=== PATIENT | male | born 1995 | race Caucasian/White ===

== ENCOUNTER 2019-10-05 14:10 | Emergency (ER) | payer SELFPAY ==
[~2019-10-05] VITALS: Ht 170.2 cm; Wt 63.6 kg
[2019-10-05 14:13] VITALS: BP 138/81
== END 2019-10-05 15:26 | disposition home or self-care (01) ==
LOC: EMS 14:11
DX: J06.9 Acute upper respiratory infection, unspecified (principal); Z71.89 Other specified counseling